=== PATIENT | male | born 1985 | race Caucasian/White ===

== ENCOUNTER 2017-04-04 20:09 | Emergency (ER) | payer OTHER ==
[2017-04-04] MEDS ORDERED: VALT1TAB PO (20:48)
[2017-04-04 20:54] LABS: BASO % 0.4 % (0.0-1.0); EOS # 0.2 K/mm3 (0.0-0.50); LARGE UNSTAINED CELL # 0.1 K/mm3 (0.0-0.4); LARGE UNSTAINED CELL % 1.2 % (0.0-4.0); LYMPH # 2.3 K/mm3 (1.5-4.5); LYMPH % 24.3 % (24.0-44.0); MEAN CORPUSCULAR HEMOGLOBIN 31.4 pg (27.0-33.0); MEAN CORPUSCULAR HGB CONC 33.9 g/dl (32.0-36.5); MEAN CORPUSCULAR VOLUME 92.6 fl (80.0-96.0); MONO # 0.5 K/mm3 (0.0-0.8); MONO % 5.1 % (0.0-5.0); NEUTROPHILS # 6.2 K/mm3 (1.8-7.7); PLATELET COUNT, AUTOMATED 275 k/mm3 (150-450); RED CELL DISTRIBUTION WIDTH 11.8 % (11.5-14.5); WHITE BLOOD COUNT 9.2 K/mm3 (4.0-10.0)
[2017-04-04 21:18] LABS: ALBUMIN 3.8 GM/DL (3.2-5.2); ALBUMIN/GLOBULIN RATIO 1.09 (1.00-1.93); ALKALINE PHOSPHATASE 82 U/L (45-117); ALT/SGPT 34 U/L (12-78); ANION GAP 6 MEQ/L (8-16); AST/SGOT 23 U/L (15-37); BILIRUBIN,TOTAL 0.4 MG/DL (0.2-1.0); BLOOD UREA NITROGEN 23 MG/DL (7-18); CALCIUM LEVEL 8.9 MG/DL (8.5-10.1); CARBON DIOXIDE LEVEL 30 MEQ/L (21-32); CHLORIDE LEVEL 105 MEQ/L (98-107); CREATININE FOR GFR 1.14 MG/DL (0.70-1.30); GLOMERULAR FILTRATION RATE > 60.0 (>60); GLUCOSE, FASTING 88 MG/DL (70-105); SODIUM LEVEL 141 MEQ/L (136-145); TOTAL PROTEIN 7.3 GM/DL (6.4-8.2)
[2017-04-04 21:25] LABS: CONTROL LINE INT CTR LINE PRESENT; HIV SCRN NEGATIVE (NEGATIVE); HIV SCRN1 NEGATIVE (NEGATIVE)
[2017-04-04 23:00] VITALS: BP 133/78
[2017-04-05 10:22] LABS: HEPATITIS B SURFACE ANTIBODY POSITIVE (POSITIVE)
== END 2017-04-04 23:06 | disposition home or self-care (01) ==
LOC: M ED 20:09
DX: Z77.21 Contact with and (suspected) exposure to potentially hazardous body fluids (principal); Y99.0 Civilian activity done for income or pay

== ENCOUNTER → 2018-04-27 | Outpatient (REF) | payer OTHER ==
[2018-04-27 13:38] LABS: APPEARANCE, URINE CLEAR (CLEAR); BACTERIA, URINE AUTO NEGATIVE (NEGATIVE); BILIRUBIN, URINE AUTO NEGATIVE (NEGATIVE); BLOOD, URINE BLOOD NEGATIVE (NEGATIVE); COLOR, URINE STRAW (YELLOW); GLUCOSE, URINE (UA) AUTO NEGATIVE (NEGATIVE); KETONE, URINE AUTO TRACE mg/dL (NEGATIVE); LEUKOCYTE ESTERASE, URINE AUTO NEGATIVE (NEGATIVE); NITRITE, URINE AUTO NEGATIVE (NEGATIVE); PROTEIN, URINE AUTO NEGATIVE (NEGATIVE); RBC, URINE AUTO 0 /HPF (0-3); SPECIFIC GRAVITY URINE AUTO 1.015 (1.002-1.035); SQUAMOUS EPITHELIAL CELL UR AU 0 /HPF (0-6); UROBILINOGEN, URINE AUTO 0.2 mg/dL (0.0-2.0); WBC, URINE AUTO 0 /HPF (0-3)
== END ==
LOC: M SMT 13:14
DX: N50.819 Testicular pain, unspecified (principal)

== ENCOUNTER 2018-08-07 01:15 | Emergency (ER) | payer OTHER ==
[2018-08-07 01:53] LABS: BASO % 0.2 % (0.0-1.0); EOS # 0.1 10^3/uL (0.0-0.50); HEMATOCRIT 43.3 % (42.0-52.0); HEMOGLOBIN 14.7 g/dl (13.5-17.5); IMMATURE GRANULOCYTE % 0.3 % (0-3.0); LYMPH % 22.4 % (24.0-44.0); MEAN CORPUSCULAR HEMOGLOBIN 30.7 pg (27.0-33.0); MEAN CORPUSCULAR HGB CONC 33.9 g/dl (32.0-36.5); MEAN CORPUSCULAR VOLUME 90.4 fl (80.0-96.0); MONO # 0.7 10^3/uL (0.0-0.8); NEUTROPHILS # 6.1 10^3/uL (1.8-7.7); NEUTROPHILS % 68.1 % (36.0-66.0); PLATELET COUNT, AUTOMATED 271 10^3/uL (150-450); RED BLOOD COUNT 4.79 10^6/uL (4.30-6.10); RED CELL DISTRIBUTION WIDTH 11.6 % (11.5-14.5)
[2018-08-07 02:42] LABS: ALBUMIN 3.7 GM/DL (3.2-5.2); ALBUMIN/GLOBULIN RATIO 1.12 (1.00-1.93); ALKALINE PHOSPHATASE 76 U/L (45-117); ALT/SGPT 29 U/L (12-78); ANION GAP 8 MEQ/L (8-16); AST/SGOT 21 U/L (7-37); BILIRUBIN,DIRECT < 0.1 MG/DL (0.0-0.2); BILIRUBIN,TOTAL 0.2 MG/DL (0.2-1.0); BLOOD UREA NITROGEN 16 MG/DL (7-18); CALCIUM LEVEL 8.5 MG/DL (8.5-10.1); CARBON DIOXIDE LEVEL 27 MEQ/L (21-32); CHLORIDE LEVEL 105 MEQ/L (98-107); GLOMERULAR FILTRATION RATE > 60.0 (>60); GLUCOSE, FASTING 103 MG/DL (70-100); LIPASE 156 U/L (73-393); POTASSIUM SERUM 3.9 MEQ/L (3.5-5.1); SODIUM LEVEL 140 MEQ/L (136-145)
[2018-08-07 03:08] LABS: KETONE, URINE AUTO RFX TRACE mg/dL (NEGATIVE); LEUKOCYTE ESTERASE UR AUTO RFX NEGATIVE (NEGATIVE); MUCUS, URINE RFX MODERATE (NEGATIVE); NITRITE, URINE AUTO RFX NEGATIVE (NEGATIVE); RBC, URINE AUTO RFX 3 /HPF (0-3); SPECIFIC GRAVITY UR AUTO RFX 1.026 (1.002-1.035); SQUAM EPITHELIAL CELL UR AURFX 0 /HPF (0-6); WBC, URINE AUTO RFX 0 /HPF (0-3)
[2018-08-07] MEDS ORDERED: ISOVUE-370 76% 100ML VIAL (Q9967) As Ordered (03:16)
[2018-08-07] MEDS: KETOROLAC 30 MG/ML VIAL (J1885) IV (03:30)
[2018-08-07] MEDS: MAGNESIUM CITRATE 300 ML BTL PO (04:49)
== END 2018-08-07 04:53 | disposition home or self-care (01) ==
LOC: M ED 01:15
DX: K59.00 Constipation, unspecified (principal); B02.9 Zoster without complications; Z79.899 Other long term (current) drug therapy; Z87.891 Personal history of nicotine dependence
CPT/HCPCS: Q9967

== ENCOUNTER → 2018-12-19 | Outpatient (CLI) | payer OTHER ==
[~2018-12-19] MED LIST: CELE100C PO; VALT1TAB PO
--- NOTE | 2019-01-01 23:24 | ECWPNPC ---
PATIENT NAME: JENNIFER IVY : 1985 GENDER: MALE VISIT DATE: 12/19/2018 DISCHARGE DATE: 12/19/18 1622 VISIT LOCKED DATE TIME: PHYSICIAN: FABIO PARHAM MD RESOURCE: FABIO PARHAM MD REASON FOR APPOINTMENT 1. REFERRALL, TESTALGIA HISTORY OF PRESENT ILLNESS NEW PATIENT CONSULT: WHEN DID YOUR PAIN FIRST START? . BRIEFLY DESCRIBE HOW YOUR PAIN STARTED? . HOW DOES YOUR PAIN CHANGE WITH TIME? . DOES YOUR PAIN AWAKEN YOU FROM SLEEP? . HOW MANY HOURS OF SLEEP DO YOU NORMALLY GET? . ANY DIAGNOSTIC TESTING? . FACILITY WHERE TESTS WERE DONE? ____. PAIN TREATMENT TREATMENT YES CANCER HAVE YOU EVER HAD ANY TYPE OF CANCER?NO NO. PAIN SCREENING: PATIENT HAS A COMPLAINT OF ACUTE OR CHRONIC PAIN :YES 33 YEAR OLD MALE PATIENT WITH A HISTORY OF CHRONIC RIGHT INGUINAL AND TESTICULAR PAIN. THE PATIENT DESCRIBES THE PAIN STABBING, PULLING, AND INTERMITTENT WITH A PAIN SCORE OF 2-4/10 DEPENDING ON PHYSICAL ACTIVITY. THE PATIENT SAYS THAT HIS PAIN STARTED ABOUT A YEAR AND A HALF AGO WHEN HE WAS EXERCISING AND TWISTED HIS BODY AND SUDDENLY FELT A PAIN IN HIS ABDOMEN DOWN INTO HIS INGUINAL AREA. THE PATIENT SAYS THE PAIN IS MAINLY LOCATED IN HIS RIGHT GROIN AREA AND GOES INTO HIS RIGHT TESTICLE. THE PATIENT SAYS THAT HE WAS SEEN BY UROLOGY, BUT THEY DID NOT FIND ANYTHING AND HE IS CONCERNED ABOUT WHERE THIS PAIN IS COMING FROM. THE PATIENT IS CURRENTLY USING CELEBREX TO AID IN PAIN RELIEF AND SAYS THAT THIS HELPS CONTROL HIS PAIN. PATIENT DENIES UNEXPLAINABLE WEIGHT LOSS, FEVER, CHILLS, NEW CHANGES ON HIS URINARY OR BOWEL CONTROL. FALL RISK SCREENING: SCREENING : NO FALLS IN THE PAST YEAR. [place] INVENTORY: QUESTIONNAIRE ASSESSEDTBD SCORE VALUE CALCULATED TBD CURRENT MEDICATIONS TAKING VALCYCLOVIR-1000 MG TID 500 MG TABS 2 TABS ORALLY ONCE A DAY TAKING CELEBREX 100 MG CAPSULE 1 CAPSULE WITH FOOD ORALLY TWICE A DAY TAKING ADVIL COLD & SINUS LIQUI-GELS 30-200 MG CAPSULE 1 CAPSULE NEEDED ORALLY EVERY 6 HRS UNKNOWN DOXYCYCLINE HYCLATE 100 MG CAPSULE 1 CAPSULE ORALLY TWICE A DAY MEDICATION LIST REVIEWED AND RECONCILED WITH THE PATIENT PAST MEDICAL HISTORY COLD SORES TESTICULAR PAIN RIGHT TESTICULAR TORSION CHILD ALLERGIES N.K.D.A. SURGICAL HISTORY TESTICULAR SURGERY AT AGE 11 TUBES IN EARS A CHILD FACHIA RELEASE BOTH FEET SLAP LESION REPAIR L SHOULDER FAMILY HISTORY FATHER: ALIVE MOTHER: 1 SON(S) , 1 DAUGHTER(S) . FATHER HAS HAD KIDNEY STONES. SOCIAL HISTORY GENERAL: TOBACCO USE ARE YOU A:FORMER SMOKER HOW LONG HAS IT BEEN SINCE YOU LAST SMOKED?5-10 YEARS ALCOHOL SCREENING DID YOU HAVE A DRINK CONTAINING ALCOHOL IN THE PAST YEAR?YES HOW OFTEN DID YOU HAVE A DRINK CONTAINING ALCOHOL IN THE PAST YEAR?MONTHLY OR LESS (1 POINT) HOW MANY DRINKS DID YOU HAVE ON A TYPICAL DAY WHEN YOU WERE DRINKING IN THE PAST YEAR?1 OR 2 (0 POINTS) POINTS1 INTERPRETATIONNEGATIVE CAFFEINE CAFFEINE USE?YES HOW OFTEN AND HOW MUCH? PT WORKS NIGHTS AND STATES HE DRINKS ALOT OF COFFEE DAILY [id number] L[employer]UAGES SPOKEN:POLISH EDUCATION LEVEL OF EDUCATION:NOT FINISHED COLLEGE DOMESTIC VIOLENCE DO YOU FEEL SAFE IN YOUR ENVIRONMENT?YES OCCUPATION: POLICE. DIET: REGULAR. EXERCISE: NO REGULAR EXERCISE. MARITAL STATUS: . OTHERS AT HOME: CHILDREN, SPOUSE. PAIN CLINIC PFS, CLERGY, PUBLIC HEALTH REFERRALS PFS REFERRAL NEEDED?NO CLERGY REFERRAL NEEDED?NO PUBLIC HEALTH REFERRAL NEEDED?NO WAS THE PROVIDER NOTIFIED OF ANY PERTINENT INFO?NO HAS THE PATIENT BEEN EDUCATED REGARDING HIS/HER PLAN OF CARE?YES HAS THE PATIENT BEEN EDUCATED REGARDING PAIN, THE RISK FOR PAIN, THE IMPORTANCE OF EFFECTIVE PAIN MANAGEMENT, AND THE PAIN ASSESSMENT PROCESS?YES HOUSING: RENTS APARTMENT. ADVANCE DIRECTIVE ADVANCE DIRECTIVE DISCUSSED WITH PATIENT:YES PT DECLINES PRINTED INFORMATION OR ASSISTANCE WITH FILLING OUT PAPERWORK HOSPITALIZATION/MAJOR DIAGNOSTIC PROCEDURE NO HOSPITALIZATION HISTORY. REVIEW OF SYSTEMS REVIEWED BY: PROVIDER: FABIO PARHAM MD . CONSTITUTIONAL: ANY CHANGE IN YOUR MEDICAL CONDITION? NO . CHILLS NO . FEVER NO . INFECTION: DO YOU HAVE NEW INFECTIONS? NO . DO YOU HAVE HISTORY OF MRSA? NO . MUSCULOSKELETAL: ANY NEW PATTERNS OF PAIN OR NUMBNESS? NO . SYTEMIC LUPUS NO . GASTROENTEROLOGY: ANY NEW CHANGE IN BOWEL CONTROL? NO . BARRETTS ESOPHAGUS NO . CIRRHOSIS NO . HEPATITIS NO . LIVER FAILURE NO . ACID REFLUX NO . UNEXPLAINED WEIGHT LOSS NO . GENITOURINARY: ANY NEW CHANGE IN BLADDER CONTROL? NO . IS THERE A CHANCE YOU COULD BE ? NO . HEMATOLOGY/LYMPH: DO YOU TAKE ANY BLOOD THINNERS? (FOR EXAMPLE- COUMADIN, PLAVIX, AGGRENOX, PLATEL, PRADAXA, OR XARELTO) NO . WHEN WAS YOUR LAST DOSE? DATE: TIME: . LOW PLATELET COUNT NO . SICKLE CELL DISEASE NO . VON WILLIEBRANDS NO . FACTOR V LEIDEN NO . THALLASEMIA NO . ANEMIA NO . EASY BRUISING NO . NEUROLOGY: HAVE YOU FALLEN IN THE PAST 12 MONTHS? NO . ANY NEW EXTREMITY NUMBNESS OR WEAKNESS? NO . HEAD INJURY NO . DEMENTIA NO . CEREBRAL PALSY NO . MULTIPLE SCLEROSIS NO . DIZZINESS NO . HEADACHE NO . STROKES NO . VERTIGO NO . CARDIOLOGY: DO YOU HAVE A PACEMAKER OR DEFIBRILLATOR? NO . ANGINA NO . HEART ATTACK NO . HEART SURGERY NO . CONGESTIVE HEART FAILURE/FLUID OVERLOAD NO . CHEST PAIN NO . HIGH BLOOD PRESSURE NO . IRREGULAR HEART BEAT NO . RESPIRATORY: HAVE YOU BEEN SICK IN THE PAST WEEK? NO . FEVER NO . FLU LIKE SYMPTOMS? NO . CPAP NO . BYPAP NO . ASTHMA NO . EMPHYSEMA NO . CHRONIC LUNG DISEASES NO . SHORTNESS OF BREATH ON EXERTION NO . DO YOU USE ANY TYPE OF TOBACCO (SMOKE, SMOKELESS, CHEW)? NO . COUGH NO . SNORING NO . INTEGUMENTARY: DO YOU HAVE ANY RASHES OR OPEN SORES? NO . ALLERGIC/IMMUNO: ARE YOU ALLERGIC TO IV DYE? NO . ANY NEW ALLERGIES? NO . PSYCHIATRIC: DO YOU HAVE THOUGHTS OF HURTING YOURSELF OR SOMEONE ELSE? NO . ARE YOU ABUSED, NEGLECTED, OR IN AN UNSAFE ENVIRONMENT? NO . ENDOCRINOLOGY: ARE YOU DIABETIC? NO . THYROID DISORDER NO . OTHER: DO YOU NEED ANY PRESCRIPTIONS? NO . IF YES, PLEASE LIST: ____ . ANY NEW PROBLEMS WITH YOUR MEDICATIONS? NO . WHEN DID YOU LAST EAT? ____ . WHEN DID YOU LAST DRINK? ____ . WHAT DID YOU LAST DRINK? ____ . NAME OF PERSON DRIVING YOU HOME? ____ . DO YOU HAVE ANY OTHER QUESTIONS OR CONCERNS NO . VITAL SIGNS WT 232.6 LBS, HT 69 IN, BMI 34.35 INDEX, BP 141/91 MM HG, HR 82 /MIN, RR 18 /MIN, TEMP 98.7 F, OXYGEN SAT % 97%, SAFE IN ENV? (Y/N) YES, NA INITIALS SC 14:31, REVIEWED BY: KG. EXAMINATION GENERAL EXAMINATION: PATIENT IS ALERT O X 3 AND COOPERATIVE. LUNGS CLEAR, TO AUSCULTATION. HEART: NO MURMURS OR GALLOPS; FACIAL CRANIAL NERVES ARE GROSSLY NORMAL. GOOD SYMMETRY OF FACIAL MUSCLE MOVEMENT. NORMAL VISUAL [place]. TENDERNESS ON THE RIGHT SIDE OF THE PUBIS. ASSESSMENTS RIGHT INGUINAL PAIN - R10.31 (PRIMARY) RIGHT TESTICULAR PAIN - N50.811 TREATMENT RIGHT INGUINAL PAIN CLINICAL NOTES: WE DISCUSSED SEVERAL ISSUES WITH MR. IVY'S PAIN MANAGEMENT CASE. I WOULD LIKE THE PATIENT TO START USING CYMBALTA ONCE A DAY TO SEE IF THAT HELPS WITH HIS PAIN. I WOULD LIKE TO GET COPIES OF THE PATIENT'S IMAGING FROM [facility]. I WILL DISCUSS WITH RADIOLOGY WHAT IMAGING TO ORDER TO GET A BETTER UNDERSTANDING OF THE PATIENT'S PELVIC PAIN. THE PATIENT WILL FOLLOW UP IN 3 WEEKS. INSTRUCTIONS WERE GIVEN, QUESTIONS WERE ANSWERED, PATIENT REPORTS UNDERSTANDING AND AGREES WITH THE PLAN. I, WENDY CARRILLO, DOCUMENTED THE ABOVE INFORMATION ACTING A SCRIBE FOR DR. PARHAM. I HAVE REVIEWED THE ABOVE DOCUMENT, WRITTEN BY WENDY GROSSMANIBFlorence AND I VERIFY THAT IT IS ACCURATE. DEAR DR. ATWOOD:THANK YOU FOR YOUR KIND REFERRAL OF MR. IVY. IF YOU WANT TO DISCUSS HIS CASE WITH ME PLEASE CALL ME AT THE PAIN CENTER AT [phone]. SINCERELY,FABIO PARHAM, [facility] . OTHERS START CYMBALTA CAPSULE DELAYED RELEASE PARTICLES, 30 MG, 1 CAPSULE WITH FOOD, ORALLY FOR PAIN, ONCE A DAY MDD1, 30 DAY(S), 30, REFILLS 1 PREVENTIVE MEDICINE PAIN CLINIC TEACHING: MEDICATIONS PT GIVEN WRITTEN AND VERBAL EDUCATION ON STARTING CYMBALTA. PT VERBALIZES UNDERSTANDING OF ALL EDUCATION. GREGORIO VELAZQUEZ 12/19/2018 4:27:43 PM > . PROCEDURE CODES FA211 ESTABILISHED PATIENT [facility] FACILITY CHARGE G8427 CURRENT MEDS W/DOSAGES DOCUMENTED G8730 PAIN ASSESS POS TOOL F/U PLAN DOC DISPOSITION & COMMUNICATION FOLLOW UP 3 WEEKS ELECTRONICALLY SIGNED BY FABIO PARHAM MD, MD ON 01/01/2019 AT 03:55 PM EDT DISCLAIMER : THIS IS A VISIT SUMMARY EXTRACTED FROM THE [employer] CHART. IT IS NOT A COPY OF THE [employer] PROGRESS NOTE. MTDD
== END ==
LOC: M PAIN 15:00
PROVIDERS: ATTEND Anesthesiology
DX: R10.31 Right lower quadrant pain (principal); N50.811 Right testicular pain; Z79.899 Other long term (current) drug therapy; Z87.891 Personal history of nicotine dependence

== ENCOUNTER → 2019-02-27 | Outpatient (CLI) | payer OTHER ==
--- NOTE | 2019-02-27 19:27 | REP ---
MRI RIGHT HIP: TECHNIQUE: Coronal T1, STIR through the pelvis, T2 fat sat, right hip all three planes, axial oblique proton density fat sat right hip. The visualized osseous structures demonstrate normal marrow signal. There is no bone marrow edema or occult fracture. There is no evidence of avascular necrosis. I do not see evidence of a labral tear. No paralabral cyst is seen. There is a normal amount of joint fluid. Surrounding soft tissue structures demonstrate no abnormal signal. Visualized intrapelvic structures are unremarkable. IMPRESSION: Negative MRI right hip. Electronically Signed by Mohsen Stevenson MD 02/28/2019 12:28 P
== END ==
LOC: M RAD 16:46
PROVIDERS: ATTEND Family Medicine
DX: R10.31 Right lower quadrant pain (principal)

== ENCOUNTER → 2019-10-18 | Outpatient (REF) | payer OTHER | LOC: M SMT 17:03 | PROVIDERS: ATTEND Urology | DX: Z30.2 Encounter for sterilization (principal) ==

== ENCOUNTER 2019-11-26 14:40 | Emergency (ER) | payer OTHER ==
[~2019-11-26] VITALS: Ht 175.3 cm; Wt 104.5 kg
[2019-11-26] MEDS ORDERED: TEST200I14 IM (15:01)
[2019-11-26] MEDS ORDERED: OMEP-221 PO (15:01)
[2019-11-26] MEDS ORDERED: VITA1CAP25 PO (15:01)
[2019-11-26] MEDS ORDERED: LORA-674 PO (15:01)
[2019-11-26] MEDS ORDERED: VALA500T5 PO (15:01)
[2019-11-26 15:43] LABS: AMPHETAMINES LEVEL URINE NEGATIVE (NEGATIVE); BARBITURATES URINE NEGATIVE (NEGATIVE); BENZODIAZEPINES URINE NEGATIVE (NEGATIVE); CANNABINOIDS URINE NEGATIVE (NEGATIVE); COCAINE METABOLITE URINE NEGATIVE (NEGATIVE); METHADONE URINE NEGATIVE (NEGATIVE); OPIATES URINE NEGATIVE (NEGATIVE); PHENCYCLIDINE URINE NEGATIVE (NEGATIVE)
[2019-11-26 15:53] LABS: BASO % 0.4 % (0.0-1.0); EOS # 0.1 10^3/uL (0.0-0.5); HEMATOCRIT 43.2 % (42.0-52.0); HEMOGLOBIN 14.4 g/dl (13.5-17.5); LYMPH # 1.5 10^3/uL (1.5-5.0); LYMPH % 19.3 % (24.0-44.0); MEAN CORPUSCULAR HGB CONC 33.3 g/dl (32.0-36.5); MONO # 0.5 10^3/uL (0.0-0.8); MONO % 7.1 % (0.0-5.0); NEUTROPHILS # 5.5 10^3/uL (1.5-8.5); NEUTROPHILS % 71.7 % (36.0-66.0); PLATELET COUNT, AUTOMATED 259 10^3/uL (150-450); WHITE BLOOD COUNT 7.6 10^3/uL (4.0-10.0)
[2019-11-26 16:25] LABS: ACETAMINOPHEN LEVEL < 2.0 UG/ML (10.0-30.0); ALBUMIN 3.5 GM/DL (3.2-5.2); ALT/SGPT 35 U/L (12-78); BILIRUBIN,DIRECT < 0.1 MG/DL (0.0-0.2); BILIRUBIN,TOTAL 0.1 MG/DL (0.2-1.0); BLOOD UREA NITROGEN 18 MG/DL (7-18); CALCIUM LEVEL 8.1 MG/DL (8.5-10.1); CARBON DIOXIDE LEVEL 29 MEQ/L (21-32); CHLORIDE LEVEL 108 MEQ/L (98-107); CREATININE FOR GFR 1.12 MG/DL (0.70-1.30); GLOMERULAR FILTRATION RATE > 60.0 (>60); GLUCOSE, FASTING 100 MG/DL (70-100); SALICYLATE LEVEL < 1.7 MG/DL (5.0-30.0); SODIUM LEVEL 143 MEQ/L (136-145); TOTAL PROTEIN 6.6 GM/DL (6.4-8.2)
[2019-11-26 16:26] LABS: ETHYL ALCOHOL (ETHANOL) < 0.003 % (0.000-0.010)
[2019-11-26 19:45] VITALS: BP 131/79
--- NOTE | 2019-11-26 20:53 | ECGEPIP ---
[facility] - ED Test Date: 2019-11-26 Pat Name: JENNIFRE IVY Department: Room: - Gender: Male Product Picker: SAMIRA : 1985 Requested By: COURTNEY ACOSTA Order Number: [id number] Reading MD: Desmond Frost Measurements Intervals [place] Rate: 76 P: 36 MN: 177 QRS: 78 QRSD: 88 T: 29 QT: 363 QTc: 411 Interpretive Statements SINUS RHYTHM LOW QRS VOLTAGE IN PRECORDIAL LEADS POOR R WAVE PROGRESSION NSTTW ABNORMALITIES NO PRIORS FOR COMPARISON Electronically Signed on 11-26-2019 20:52:55 EST by Desmond Frost
== END 2019-11-26 19:46 | disposition home or self-care (01) ==
LOC: M ED 14:40
DX: Z71.1 Person with feared health complaint in whom no diagnosis is made (principal); T50.991A Poisoning by other drugs, medicaments and biological substances, accidental (unintentional), initial encounter; Y92.89 Other specified places as the place of occurrence of the external cause; Y93.9 Activity, unspecified; K21.9 Gastro-esophageal reflux disease without esophagitis; Z79.890 Hormone replacement therapy; Z79.899 Other long term (current) drug therapy
CPT/HCPCS: 80048; 80076; 80307; 85025; 93005; 93041; 94760; 99285; G0480

== ENCOUNTER → 2020-08-09 | Outpatient (CLI) | payer SELFPAY ==
[~2020-08-09] MED LIST changes: +LORA-674 PO; +OMEP-221 PO; +RALT40TA PO; +TEST200I14 IM; +TRUVTAB PO; +VALA500T5 PO; +VITA1CAP25 PO
== END ==
LOC: M LABSMTC 14:16
PROVIDERS: ATTEND Pediatrics
DX: Z20.828 Contact with and (suspected) exposure to other viral communicable diseases (principal)

== ENCOUNTER 2020-08-13 09:32 | Emergency (ER) | payer OTHER ==
[~2020-08-13] VITALS: Ht 175.3 cm; Wt 117.0 kg
[~2020-08-13 09:32] MED LIST changes: -RALT40TA PO; +RALTEGRAVIR 400 MG TAB (ISENTRESS) PO SCH; -TRUVTAB PO
[2020-08-13] MEDS ORDERED: EXPOSURE KIT-ADULT 7 DAY SUPPLY PO ONE (10:15)
[2020-08-13] MEDS ORDERED: TRUVADA 200MG/300MG TABLET PO ONE (10:30)
[2020-08-13] MEDS ORDERED: RALTEGRAVIR 400 MG TAB (ISENTRESS) PO ONE (10:30)
[2020-08-13] MEDS ORDERED: TRUVTAB PO (11:06)
[2020-08-13] MEDS ORDERED: RALT40TA PO (11:06)
[2020-08-13 11:50] LABS: ALBUMIN 4.1 GM/DL (3.2-5.2); ALT/SGPT 31 U/L (12-78); BILIRUBIN,TOTAL 0.3 MG/DL (0.2-1.0); BLOOD UREA NITROGEN 24 MG/DL (7-18); CALCIUM LEVEL 8.8 MG/DL (8.5-10.1); CARBON DIOXIDE LEVEL 26 MEQ/L (21-32); CHLORIDE LEVEL 107 MEQ/L (98-107); CREATININE FOR GFR 0.94 MG/DL (0.70-1.30); GLOMERULAR FILTRATION RATE > 60.0 (>60); GLUCOSE, FASTING 97 MG/DL (70-100); SODIUM LEVEL 138 MEQ/L (136-145); TOTAL PROTEIN 7.2 GM/DL (6.4-8.2)
[2020-08-13 12:04] LABS: HEPATITIS B SURFACE ANTIBODY POSITIVE (POSITIVE)
[2020-08-13 12:15] LABS: HEPATITIS B SURFACE ANTIGEN NEGATIVE (NEGATIVE)
[2020-08-13 12:34] LABS: BASO % 0.3 % (0.0-1.0); EOS # 0.1 10^3/uL (0.0-0.5); EOS % 0.8 % (0.0-3.0); HEMATOCRIT 43.8 % (42.0-52.0); HEMOGLOBIN 14.2 g/dl (13.5-17.5); LYMPH # 1.3 10^3/uL (1.5-5.0); LYMPH % 17.7 % (24.0-44.0); MEAN CORPUSCULAR HEMOGLOBIN 29.6 pg (27.0-33.0); MEAN CORPUSCULAR HGB CONC 32.4 g/dl (32.0-36.5); MEAN CORPUSCULAR VOLUME 91.3 fl (80.0-96.0); MONO # 0.5 10^3/uL (0.0-0.8); MONO % 7.2 % (0.0-5.0); NEUTROPHILS # 5.3 10^3/uL (1.5-8.5); NEUTROPHILS % 73.6 % (36.0-66.0); PLATELET COUNT, AUTOMATED 270 10^3/uL (150-450); WHITE BLOOD COUNT 7.1 10^3/uL (4.0-10.0)
[2020-08-13 12:43] VITALS: BP 146/88
[2020-08-13 13:13] LABS: HEPATITIS C VIRUS ABY INDEX < 0.0 INDEX (<0.8); HIV 1&2 SCREEN CENTAUR NEGATIVE (NEGATIVE)
[2020-08-14] MEDS ORDERED: TRUVADA 200MG/300MG TABLET PO SCH
== END 2020-08-13 12:44 | disposition home or self-care (01) ==
LOC: M ED 09:32
DX: Z77.21 Contact with and (suspected) exposure to potentially hazardous body fluids (principal); Y99.0 Civilian activity done for income or pay; Y92.9 Unspecified place or not applicable; Y93.9 Activity, unspecified

== ENCOUNTER → 2020-09-13 | Outpatient (REF) | payer OTHER ==
[~2020-09-13] MED LIST changes: +RALT40TA PO; -RALTEGRAVIR 400 MG TAB (ISENTRESS) PO SCH; +TRUVTAB PO
[2020-09-13 15:11] LABS: BASO % 0.3 % (0.0-1.0); EOS # 0.1 10^3/uL (0.0-0.5); HEMATOCRIT 45.4 % (42.0-52.0); HEMOGLOBIN 15.4 g/dl (13.5-17.5); LYMPH # 1.6 10^3/uL (1.5-5.0); MEAN CORPUSCULAR HEMOGLOBIN 30.4 pg (27.0-33.0); MEAN CORPUSCULAR HGB CONC 33.9 g/dl (32.0-36.5); MEAN CORPUSCULAR VOLUME 89.7 fl (80.0-96.0); MONO # 0.5 10^3/uL (0.0-0.8); MONO % 7.1 % (0.0-5.0); NEUTROPHILS # 4.6 10^3/uL (1.5-8.5); NEUTROPHILS % 67.3 % (36.0-66.0); PLATELET COUNT, AUTOMATED 298 10^3/uL (150-450); RED BLOOD COUNT 5.06 10^6/uL (4.30-6.10); WHITE BLOOD COUNT 6.8 10^3/uL (4.0-10.0)
[2020-09-13 15:34] LABS: ALBUMIN 4.1 GM/DL (3.2-5.2); ALT/SGPT 30 U/L (12-78); BILIRUBIN,TOTAL 0.2 MG/DL (0.2-1.0); BLOOD UREA NITROGEN 29 MG/DL (7-18); CALCIUM LEVEL 9.4 MG/DL (8.5-10.1); CARBON DIOXIDE LEVEL 27 MEQ/L (21-32); CHLORIDE LEVEL 108 MEQ/L (98-107); CREATININE FOR GFR 0.98 MG/DL (0.70-1.30); GLOMERULAR FILTRATION RATE > 60.0 (>60); GLUCOSE, FASTING 95 MG/DL (70-100); SODIUM LEVEL 141 MEQ/L (136-145); TOTAL PROTEIN 7.2 GM/DL (6.4-8.2)
[2020-09-13 16:21] LABS: HEPATITIS C VIRUS ABY INDEX 0.1 INDEX (<0.8)
[2020-09-13 16:22] LABS: HIV 1&2 SCREEN CENTAUR NEGATIVE (NEGATIVE)
== END ==
LOC: M SFHCPLAZ 12:15
PROVIDERS: ATTEND Internal Medicine Infectious Disease
DX: Z77.21 Contact with and (suspected) exposure to potentially hazardous body fluids (principal)

== ENCOUNTER → 2020-09-23 | Outpatient (CLI) | payer SELFPAY | LOC: M LABSMTC 12:18 | PROVIDERS: ATTEND Pediatrics | DX: Z20.828 Contact with and (suspected) exposure to other viral communicable diseases (principal) ==

== ENCOUNTER 2021-06-01 18:24 | Emergency (ER) | payer OTHER ==
[~2021-06-01] VITALS: Ht 175.3 cm; Wt 104.5 kg
[~2021-06-01 18:24] MED LIST changes: +EMTR1TAB16 PO; -TRUVTAB PO
[2021-06-01 18:25] VITALS: BP 131/86
[2021-06-01] MEDS ORDERED: RABIES VACCINE HUMAN 2.5 INTERNATIONAL UNITS/ML VIAL (90675) IM ONE (18:50)
[2021-06-01] MEDS ORDERED: RABIES IMMUNE GLOBULIN 1500 INTERNATIONAL UNIT/5ML VIAL (90375) IM ONE ×2 (18:50→19:00)
[2021-06-01] MEDS ORDERED: RABIES IMMUNE GLOBULIN 300 INTERNATIONAL UNITS/1ML VIAL (90375) IM ONE (19:00)
[2021-06-01] MEDS ORDERED: AUGM875T28 PO (19:13)
[2021-06-01] MEDS ORDERED: AUGMENTIN 875 MG TAB PO ONE (19:15)
== END 2021-06-01 20:04 | disposition home or self-care (01) ==
LOC: M ED 18:24
DX: S61.431A Puncture wound without foreign body of right hand, initial encounter (principal); S61.531A Puncture wound without foreign body of right wrist, initial encounter; W55.01XA Bitten by cat, initial encounter; Y92.89 Other specified places as the place of occurrence of the external cause; Y93.9 Activity, unspecified; Y99.0 Civilian activity done for income or pay; Z23 Encounter for immunization; Z20.3 Contact with and (suspected) exposure to rabies; Z79.890 Hormone replacement therapy; Z79.899 Other long term (current) drug therapy

== ENCOUNTER 2021-06-04 18:52 | Emergency (ER) | payer OTHER ==
[~2021-06-04] VITALS: Ht 175.3 cm; Wt 110.6 kg
[~2021-06-04 18:52] MED LIST changes: +AUGM875T28 PO
[2021-06-04] MEDS ORDERED: OMEP40CA4 PO (19:32)
[2021-06-04] MEDS ORDERED: RABIES VACCINE HUMAN 2.5 INTERNATIONAL UNITS/ML VIAL (90675) IM ONE (22:00)
[2021-06-04 22:24] VITALS: BP 136/85
== END 2021-06-04 22:25 | disposition home or self-care (01) ==
LOC: M ED 18:52
DX: S61.451A Open bite of right hand, initial encounter (principal); W55.01XA Bitten by cat, initial encounter; Y92.9 Unspecified place or not applicable; Y93.9 Activity, unspecified; Y99.9 Unspecified external cause status; Z23 Encounter for immunization; Z20.3 Contact with and (suspected) exposure to rabies; K21.9 Gastro-esophageal reflux disease without esophagitis; Z79.890 Hormone replacement therapy

== ENCOUNTER 2021-06-08 16:41 | Emergency (ER) | payer OTHER ==
[~2021-06-08] VITALS: Ht 175.3 cm; Wt 109.5 kg
[~2021-06-08 16:41] MED LIST changes: +OMEP40CA4 PO
[2021-06-08 16:42] VITALS: BP 139/81
[2021-06-08] MEDS ORDERED: RABIES VACCINE HUMAN 2.5 INTERNATIONAL UNITS/ML VIAL (90675) IM ONE (16:55)
== END 2021-06-08 17:19 | disposition home or self-care (01) ==
LOC: M ED 16:41
DX: Z23 Encounter for immunization (principal)

== ENCOUNTER 2021-06-15 16:16 | Emergency (ER) | payer OTHER ==
[~2021-06-15] VITALS: Ht 175.3 cm; Wt 10.9 kg
[2021-06-15] MEDS ORDERED: RABIES VACCINE HUMAN 2.5 INTERNATIONAL UNITS/ML VIAL (90675) IM ONE (16:20)
== END 2021-06-15 16:58 | disposition home or self-care (01) ==
LOC: M ED 16:16
DX: Z23 Encounter for immunization (principal)

== ENCOUNTER 2021-09-13 16:59 | Emergency (ER) | payer OTHER ==
[~2021-09-13] VITALS: Ht 175.3 cm; Wt 109.1 kg
[2021-09-13 16:59] VITALS: BP 142/88
[2021-09-13] MEDS ORDERED: MONT10TA10 (17:11)
[2021-09-13] MEDS ORDERED: FLUTISP (17:11)
[2021-09-13] MEDS ORDERED: RABIES VACCINE HUMAN 2.5 INTERNATIONAL UNITS/ML VIAL (90675) IM ONE (17:35)
[2021-09-13] MEDS ORDERED: AUGM875T28 PO (17:56)
== END 2021-09-13 18:09 | disposition home or self-care (01) ==
LOC: M ED 16:59
DX: S61.459A Open bite of unspecified hand, initial encounter (principal); W55.01XA Bitten by cat, initial encounter; Y92.89 Other specified places as the place of occurrence of the external cause; Y93.89 Activity, other specified; Y99.0 Civilian activity done for income or pay; K21.9 Gastro-esophageal reflux disease without esophagitis; Z79.899 Other long term (current) drug therapy

== ENCOUNTER 2021-09-16 09:01 | Emergency (ER) | payer OTHER ==
[~2021-09-16] VITALS: Ht 175.3 cm; Wt 109.1 kg
[~2021-09-16 09:01] MED LIST changes: +FLUTISP; +MONT10TA10
[2021-09-16] MEDS: RABIES VACCINE HUMAN 2.5 INTERNATIONAL UNITS/ML VIAL (90675) IM ONE (09:33)
[2021-09-16 09:45] VITALS: BP 133/80
== END 2021-09-16 09:50 | disposition home or self-care (01) ==
LOC: M ED 09:01
DX: Z23 Encounter for immunization (principal); Z20.3 Contact with and (suspected) exposure to rabies

== ENCOUNTER 2021-12-22 12:26 | Day surgery (SDC) | payer OTHER ==
[~2021-12-22] VITALS: Ht 175.3 cm; Wt 106.6 kg
[~2021-12-22 12:26] MED LIST changes: +D32000TA2 PO; +LYSI600T PO; -MONT10TA10; +MONT10TA97; +NS 1,000 ML IV ONE; -OMEP-221 PO; +OMEP40CA5 PO; +PROB1CAP10 PO; +SING4CHW9 PO
[2021-12-22] MEDS ORDERED: propofoL 200 MG/20 ML VIAL As Ordered ONE (14:15)
[2021-12-22] MEDS ORDERED: LIDOCAINE 2% 100MG/5ML SDV (FOR ANES.) As Ordered ONE (14:15)
[2021-12-22] MEDS ORDERED: fentaNYL 100 MCG/2 ML INJECTION As Ordered ONE (14:15)
[2021-12-22 15:11] VITALS: BP 128/77
== END 2021-12-22 15:14 | disposition home or self-care (01) ==
LOC: M OPP 12:26
PROVIDERS: ATTEND Internal Medicine Gastroenterology
DX: K21.9 Gastro-esophageal reflux disease without esophagitis (principal); Z87.891 Personal history of nicotine dependence
CPT/HCPCS: 43239; 88305; J3010

== ENCOUNTER 2022-03-14 16:50 | Emergency (ER) | payer OTHER ==
[~2022-03-14] VITALS: Ht 175.3 cm; Wt 109.1 kg
[~2022-03-14 16:50] MED LIST changes: -NS 1,000 ML IV ONE
[2022-03-14] MEDS ORDERED: VALA500T5 PO (17:04)
[2022-03-14 17:09] VITALS: BP 139/78
== END 2022-03-14 18:11 | disposition home or self-care (01) ==
LOC: M ED 16:50
DX: S00.01XA Abrasion of scalp, initial encounter (principal); S00.03XA Contusion of scalp, initial encounter; Z77.098 Contact with and (suspected) exposure to other hazardous, chiefly nonmedicinal, chemicals; Y04.0XXA Assault by unarmed brawl or fight, initial encounter; Y99.0 Civilian activity done for income or pay; K21.9 Gastro-esophageal reflux disease without esophagitis; Z79.899 Other long term (current) drug therapy

== ENCOUNTER 2022-07-22 06:34 | Emergency (ER) | payer OTHER ==
[~2022-07-22] VITALS: Ht 175.3 cm; Wt 113.4 kg
[2022-07-22 08:33] VITALS: BP 135/94
[2022-07-22 10:27] LABS: GC DNA AMPLIFICATION NEGATIVE (NEGATIVE)
== END 2022-07-22 09:56 | disposition home or self-care (01) ==
LOC: M ED 06:34
DX: N45.2 Orchitis (principal); Z79.899 Other long term (current) drug therapy

== ENCOUNTER 2024-07-01 09:14 | Emergency (ER) | payer OTHER ==
[~2024-07-01] VITALS: Ht 175.3 cm; Wt 113.6 kg
[~2024-07-01 09:14] MED LIST changes: +LORA-1041 PO; -LORA-674 PO; +MONT4TAB2 PO; -SING4CHW9 PO
[2024-07-01] MEDS: LIDOCAINE W/EPINEPHRINE 1% 20ML VIAL SC ONE (09:49)
[2024-07-01] MEDS ORDERED: ESCITALOPRAM (10:25)
[2024-07-01] MEDS ORDERED: HYDR1CAP25 (10:25)
[2024-07-01] MEDS: IBUPROFEN 600MG TAB PO ONE (11:01)
[2024-07-01] MEDS: LIDOCAINE 5% (LIDODERM) PATCH TD ONE (11:02)
[2024-07-01] MEDS: ACETAMINOPHEN 325 MG TAB PO ONE (11:02)
[2024-07-01] MEDS ORDERED: LIDO5DIS41 TOP (11:03)
[2024-07-01 11:08] VITALS: BP 143/93; TEMP 98.2; O2SAT 96
== END 2024-07-01 11:18 | disposition home or self-care (01) ==
LOC: M ED 09:14
DX: S01.311A Laceration without foreign body of right ear, initial encounter (principal); S80.212A Abrasion, left knee, initial encounter; M54.9 Dorsalgia, unspecified; X58.XXXA Exposure to other specified factors, initial encounter; Y92.9 Unspecified place or not applicable; Y93.9 Activity, unspecified; Y99.9 Unspecified external cause status; K21.9 Gastro-esophageal reflux disease without esophagitis; Z79.899 Other long term (current) drug therapy

== ENCOUNTER 2024-07-06 08:10 | Emergency (ER) | payer OTHER ==
[~2024-07-06 08:10] MED LIST changes: +ESCITALOPRAM; +HYDR1CAP25; +LIDO5DIS41 TOP
[2024-07-06 09:31] VITALS: TEMP 97.6
[2024-07-06 09:49] VITALS: BP 145/87; O2SAT 99
== END 2024-07-06 09:56 | disposition home or self-care (01) ==
LOC: M ED 08:10
DX: S49.91XA Unspecified injury of right shoulder and upper arm, initial encounter (principal); M19.011 Primary osteoarthritis, right shoulder; W19.XXXA Unspecified fall, initial encounter; Y92.9 Unspecified place or not applicable; Y93.9 Activity, unspecified; Y99.0 Civilian activity done for income or pay; K21.9 Gastro-esophageal reflux disease without esophagitis; Z79.899 Other long term (current) drug therapy

== ENCOUNTER 2024-10-07 06:56 | Emergency (ER) | payer OTHER ==
[~2024-10-07] VITALS: Ht 175.3 cm; Wt 118.2 kg
[2024-10-07 07:32] VITALS: BP 134/74; TEMP 97.8; O2SAT 99
[2024-10-07] MEDS ORDERED: KETO10TAB PO (07:48)
[2024-10-07] MEDS ORDERED: METH-1165 PO (07:48)
[2024-10-07] MEDS: KETOROLAC 30 MG/ML 1ML VIAL IM ONE (07:56)
[2024-10-07] MEDS: ACETAMINOPHEN 325 MG TAB PO ONE (07:56)
== END 2024-10-07 08:00 | disposition home or self-care (01) ==
LOC: M ED 06:56
DX: S29.012A Strain of muscle and tendon of back wall of thorax, initial encounter (principal); M62.830 Muscle spasm of back; W18.42XA Slipping, tripping and stumbling without falling due to stepping into hole or opening, initial encounter; Y92.481 Parking lot as the place of occurrence of the external cause; Y93.89 Activity, other specified; Y99.8 Other external cause status; K21.9 Gastro-esophageal reflux disease without esophagitis
CPT/HCPCS: 96372; 99283; J1885

== ENCOUNTER 2024-10-16 08:28 | Emergency (ER) | payer OTHER ==
[~2024-10-16] VITALS: Ht 175.3 cm; Wt 118.3 kg
[~2024-10-16 08:28] MED LIST changes: +KETO10TAB PO; +METH-1165 PO
[2024-10-16] MEDS ORDERED: NAPR-837 PO (10:02)
[2024-10-16] MEDS ORDERED: METH-1165 PO (10:02)
[2024-10-16] MEDS: NAPROXEN 250 MG TAB PO ONE (10:07)
[2024-10-16 10:16] VITALS: BP 138/80; TEMP 97; O2SAT 98
== END 2024-10-16 10:36 | disposition home or self-care (01) ==
LOC: M ED 08:28
DX: S23.3XXA Sprain of ligaments of thoracic spine, initial encounter (principal); S33.5XXA Sprain of ligaments of lumbar spine, initial encounter; S33.6XXA Sprain of sacroiliac joint, initial encounter; X58.XXXA Exposure to other specified factors, initial encounter; Y92.9 Unspecified place or not applicable; Y93.9 Activity, unspecified; Y99.0 Civilian activity done for income or pay; K21.9 Gastro-esophageal reflux disease without esophagitis; Z79.899 Other long term (current) drug therapy

== ENCOUNTER 2025-08-16 07:47 | Emergency (ER) | payer OTHER ==
[~2025-08-16] VITALS: Ht 175.3 cm; Wt 120.7 kg
[~2025-08-16 07:47] MED LIST changes: +LIDO1ADH93 TOP; -LIDO5DIS41 TOP; +NAPR-837 PO
[2025-08-16] MEDS ORDERED: AMOX875T2 PO (08:32)
[2025-08-16] MEDS: TETANUS/DIPHTH/ACEL. PERTUSSIS 0.5 ML SYR IM.IMMUN ONE (09:39)
[2025-08-16 10:09] VITALS: BP 150/86; TEMP 98.1; O2SAT 100
== END 2025-08-16 10:11 | disposition home or self-care (01) ==
LOC: M ED 07:47
DX: S40.812A Abrasion of left upper arm, initial encounter (principal); S40.022A Contusion of left upper arm, initial encounter; W54.0XXA Bitten by dog, initial encounter; Y92.9 Unspecified place or not applicable; Y93.9 Activity, unspecified; Y99.0 Civilian activity done for income or pay; J45.909 Unspecified asthma, uncomplicated; G47.33 Obstructive sleep apnea (adult) (pediatric); F41.9 Anxiety disorder, unspecified; F32.A Depression, unspecified; Z79.899 Other long term (current) drug therapy